=== PATIENT | female | born 1995 | race Caucasian/White ===

== ENCOUNTER 2022-02-16 23:49 | Emergency (ER) | payer OTHER, MEDICAID, SELFPAY ==
[2022-02-17 00:07] VITALS: BP 134/103; PULSE 101; RESP 17; TEMP 36.8; O2SAT 96; BMI 44.5
--- NOTE | 2022-02-17 00:23 | DI.CT.S_ITS ---
PROCEDURE: CT LUMBAR SPINE W CON INDICATIONS: severe lumbar pain, radiculopathy TECHNIQUE: After the administration of intravenous Isovue contrast, 3 mm thick sections acquired through the levels of interest. Sagittal and coronal reformats were then constructed. For radiation dose reduction, the following was used: automated exposure control. COMPARISON: None. FINDINGS: Image quality: Excellent. Bones: Mild degenerative disc height reduction at L3-4, L4-5 and L5-S1. No bone lesion or trauma is found. Soft tissues: A inflammatory process is not identified involving the spinal column or paravertebral soft tissues. A disc herniation is found. IMPRESSION: Mild degenerative changes without visualized source of radiculopathy. Depending on the clinical status follow-up by elective MR scanning may become necessary for improved visualization. Dictated by: Lenin Brush M.D. on 02/17/2022 at 1:24 Approved by: Lenin Brush M.D. on 02/17/2022 at 1:26
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
[2022-02-17] MEDS: HYDROMORPHONE 0.5 MG INJ IV (00:36)
[2022-02-17] MEDS: DEXAMETHASONE 10 MG/ML VIAL 6 MG IV (00:37)
[2022-02-17 00:48] LABS: Add Manual Diff / Slide Review NO; Basophils Absolute Auto 100 /uL (0-100); Basophils Percent Auto 0.5 % (0-2); Eosinophils Absolute Auto 100 /uL (0-450); Eosinophils Percent Auto 0.9 % (2-4); Hematocrit 42.3 % (36-46); Hemoglobin 14.9 g/dL (12.0-16.0); Lymphocytes Absolute Auto 4200 /uL (1100-4500); Lymphocytes Percent Auto 26.7 % (25-40); Mean Corpuscular HGB Conc 35.1 % (30-36); Mean Corpuscular Hemoglobin 30.1 PG (26-34); Mean Corpuscular Volume 85.8 fL (80-100); Monocytes Absolute Auto 900 /uL (0-900); Monocytes Percent Auto 5.9 % (3-14); Neutrophils Absolute Auto 10300 /uL (1500-7000); Platelet Count 306 X10^3/uL (150-400); Red Blood Cell Count 4.93 X10^6/uL (4.0-5.2); White Blood Cell Count 15.6 X10^3/uL (4.5-11.0)
[2022-02-17 00:53] LABS: Alanine Aminotransferase 141 IU/L (<35); Albumin 4.5 g/dL (3.5-5.0); Albumin Globulin Ratio 1.3 (1.0-2.8); Alkaline Phosphatase 77 U/L (38-126); Aspartate Aminotransferase 71 IU/L (14-36); BUN Creatinine Ratio 28.3 (6-22); Bilirubin Total 0.3 mg/dL (0.2-1.3); Blood Urea Nitrogen 15 mg/dL (7-17); Calcium 9.3 mg/dL (8.4-10.2); Carbon Dioxide 24 mmol/L (22-32); Chloride 105 mmol/L (98-107); Estimated Glomerular Filt Rate > 60 mL/min (>60); Globulin 3.4 g/dL (1.7-4.1); Glucose 187 mg/dL (70-100); HEMOLYSIS < 15 (0-50); Potassium 3.8 mmol/L (3.4-5.1); Sodium 138 mmol/L (137-145); Total Protein 7.9 g/dL (6.3-8.2)
[2022-02-17 01:01] LABS: C-Reactive Protein Quant 0.8 mg/dL (<1.0)
[2022-02-17 01:11] LABS: Erythrocyte Sedimentation Rate 14 MM/HR (0-20)
[2022-02-17] MEDS: ONDANSETRON 4 MG ODT PREPACK 1 BOTTLE MISC (01:48)
[2022-02-17] MEDS: HYDROCODONE/ACET 5/325 PREPACK 1 BOTTLE MISC (01:48)
[2022-02-17 01:53] VITALS: PULSE 87; RESP 18; O2SAT 98
== END 2022-02-17 01:54 | disposition home or self-care (01) ==
PROVIDERS: Emergency Provider Emergency Medicine; PCP Nurse Practitioner Family
DX: M54.16 Radiculopathy, lumbar region (principal)
CPT/HCPCS: 36415; 72132; 80053; 85025; 85651; 86140; 96374; 96375; 99284; J1100; J1170; Q9967